=== PATIENT | female | born 1990 ===

== ENCOUNTER 2023-02-07 20:13 | Inpatient (IN) | payer MEDICARE, MEDICAID ==
[2023-02-08] MEDS ORDERED: MAG HYDROX/AL HYDROX/SIMETH 30 ML CUP PO PRN (13:52)
[2023-02-08] MEDS ORDERED: MAGNESIUM HYDROXIDE 2,400 MG/30 ML CUP PO PRN (13:52)
[2023-02-08] MEDS ORDERED: LORazepam 2 MG/ML INJ IM PRN (14:07)
[2023-02-08] MEDS ORDERED: HALOPERIDOL LACTATE 5 MG/ML 1 ML VIAL IM PRN (14:08)
[2023-02-08] MEDS: NICOTINE GUM (POLACRILEX) 2 MG GUM BUCCAL PRN ×2 (20:07→23:23)
[2023-02-08] MEDS: ACETAMINOPHEN TAB 325 MG TAB PO PRN (20:07)
[2023-02-08] MEDS ORDERED: TRIAMCINOLONE 0.1% CREAM 80 GM TUBE TOPICAL PRN (21:00)
[2023-02-08] MEDS: LORazepam 1 MG TAB PO PRN (21:06)
[2023-02-08] MEDS: BRIVIACT 100 MG PO SCH (22:44)
[2023-02-08] MEDS: haloperidoL 5 MG TAB PO PRN (23:23)
[2023-02-09] MEDS: FOLIC ACID 1 MG TAB PO SCH (08:18)
[2023-02-09] MEDS: PANTOPRAZOLE 40 MG TABLET PO SCH (08:18)
[2023-02-09] MEDS: NICOTINE GUM (POLACRILEX) 2 MG GUM BUCCAL PRN ×4 (08:18→20:37)
[2023-02-09] MEDS: SERTRALINE 100 MG TAB PO SCH (08:18)
[2023-02-09] MEDS: BRIVIACT 100 MG PO SCH ×2 (08:20→20:33)
[2023-02-09] MEDS: LURASIDONE 80 MG TAB PO SCH (08:38)
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
[2023-02-09 10:12] LABS: Chol/HDL Ratio 2.53 Ratio; LDL Cholesterol,Calculated 110.4 mg/dL (0.0-131.0); VLDL Calculation 16.58 mg/dL (5.00-40.00)
[2023-02-09] MEDS: LORazepam 1 MG TAB PO PRN ×2 (14:24→22:14)
[2023-02-09] MEDS: haloperidoL 5 MG TAB PO PRN (20:37)
--- NOTE | 2023-02-09 21:40 | P.CONS ---
History of Present Illness - Reason for Consult Consult date: 02/09/23 - History of Present Illness The patient is a 32-year-old female who was transferred from [facility] with the patient had been admitted after an intentional overdose with clonidine. The patient was reportedly admitted to the ICU with altered mental status. The patient's mentation gradually improved and was transferred to the [facility] unit where she was seen and evaluated with the mental health unit RN Zoya logan. The patient endorsed right dorsal hand pain and swelling, with initial bruising 3 days ago with subsequent swelling since this morning. She reports mild pain at the site rated at a 4 out of 10 at the time of interview. Reports full range of motion of the right hand. Denied extremity fever or chills. She reports recreational marijuana use. Reports vape use. Denied alcohol use. Review of systems: Pertinent positives and negatives as discussed in HPI, a complete review of systems was performed and all other systems are negative. Physical examination: General: non toxic, no distress, appears at stated age, normal weight Derm: Right dorsum hand mild 5-6 cm erythema with area of fluctuance noted with tenderness, no unusual ecchymoses, warm, dry Head: atraumatic, normocephalic, symmetric Eyes: EOMI, no lid lag, anicteric sclera ENT: Nose and ears atraumatic, no thrush, no pharyngeal erythema Neck: trachea midline, supple Mouth: no lip lesion, mucus membranes moist Cardiovascular: S1S2 reg, no murmur, no edema Lungs: CTA bilateral, no rhonchi, no rales , no accessory muscle use Abdominal: soft, nontender to palpation, no guarding Ext: no gross muscle atrophy, no contractures, Neuro: No gross focal neuro deficits noted Psych: Alert, oriented, appropriate affect Assessment: Right hand cellulitis with subcutaneous abscess Tobacco, marijuana abuse Depression and suicidal ideation Plan: Start patient on clindamycin empirically which should cover for community acquired MRSA Hand surgery consulted for drainage Thank you for allowing us to participate in the care of this patient. We will follow peripherally. Do not hesitate to contact us with questions. Someone can be reached from the [facility] hospitalist group at all hours of the day at [phone]. Past Medical History History of Any Multi-Drug Resistant Organisms: None Reported Smoking Status: Current every day smoker - Past Family History Mother Family Medical History: Hypertension Medications and Allergies Home Medications Medication Instructions Recorded Confirmed Type Unable To Assess [Unable to Assess] 02/08/23 02/08/23 History Allergies Allergy/AdvReac Type Severity Reaction Status Date / Time quetiapine [From Seroquel] Allergy Unknown Verified 02/08/23 21:04 amoxicillin [From Augmentin] AdvReac Severe Anaphylaxis Verified 02/08/23 21:04 clavulanic acid AdvReac Severe Anaphylaxis Verified 02/08/23 21:04 [From Augmentin] divalproex sodium AdvReac Unknown Verified 02/08/23 21:04 [From Depakote] hydroxyzine [From Atarax] AdvReac Unknown Verified 02/08/23 21:04 lamotrigine [From Lamictal] AdvReac Unknown Verified 02/08/23 21:04 levetiracetam [From Keppra] AdvReac Unknown Verified 02/08/23 21:04 Penicillins AdvReac Anaphylaxis Verified 02/08/23 21:04 trazodone AdvReac Unknown Verified 02/08/23 21:04 Physical Exam Vitals: Vital Signs Temp Pulse Resp BP 02/09/23 06:36 97.8 F 104 H 14 138/77 Intake and Output 02/09/23 02/09/23 02/09/23 06:59 14:59 22:59 Other: Weight 54.3 kg Results Labs: Abnormal Lab Results - Last 24 Hours (Table) 02/09/23 Range/Units 06:03 Cholesterol 210.00 H (0.00-200.00) mg/dL HDL Cholesterol 83.00 H (40.00-60.00) mg/dL
[2023-02-09] MEDS: CLINDAMYCIN 150 MG CAP PO SCH (22:12)
[2023-02-10] MEDS: SERTRALINE 100 MG TAB PO SCH (08:17)
[2023-02-10] MEDS: LURASIDONE 80 MG TAB PO SCH (08:18)
[2023-02-10] MEDS: PANTOPRAZOLE 40 MG TABLET PO SCH (08:18)
[2023-02-10] MEDS: CLINDAMYCIN 150 MG CAP PO SCH ×3 (08:18→20:00)
[2023-02-10] MEDS: FOLIC ACID 1 MG TAB PO SCH (08:18)
[2023-02-10] MEDS: NICOTINE GUM (POLACRILEX) 2 MG GUM BUCCAL PRN ×4 (08:19→19:59)
[2023-02-10] MEDS: LORazepam 1 MG TAB PO PRN ×2 (09:08→20:29)
[2023-02-10] MEDS: BRIVIACT 100 MG PO SCH ×2 (09:11→20:01)
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
--- NOTE | 2023-02-10 12:18 | P.CNOR ---
History of Present Illness - [facility] Consult date: 02/10/23 Consult reason: other (Right hand cellulitis) History of present illness: Patient is a 32-year-old female who was transferred from [facility] to [facility] on 02/09/2023. On reviewing the chart, it seems that the patient was admitted to the ICU due to medication overdose with suicidal ideations. Patient was then transferred to our hospital for mental health unit admission. When being evaluated yesterday there was concerns of some swelling, bruising and redness to the dorsum of the right hand. Patient states that she had noticed the swelling and redness over the last few days. We were consulted by the internal medicine group for possible cellulitis versus abscess. Patient was evaluated today on the mental health unit. Patient appears well, she does not appear septic. She had a very difficult time providing history of the right hand. She states she cannot remove any specific trauma. She denies any fevers or chills at this time. She does have some discomfort on the dorsum of the hand near the area of the bruise. She thinks that she had an IV in her left arm but cannot remember anything specific on the right upper extremity. She denies any previous orthopedic surgery to the right upper extremity. She denies any other orthopedic issues at this time. Review of Systems Constitutional: Reports as per HPI Past Medical History History of Any Multi-Drug Resistant Organisms: None Reported Smoking Status: Current every day smoker - Past Family History Mother Family Medical History: Hypertension Medications and Allergies Home Medications Medication Instructions Recorded Confirmed Type Unable To Assess [Unable to Assess] 02/08/23 02/08/23 History Allergies Allergy/AdvReac Type Severity Reaction Status Date / Time quetiapine [From Seroquel] Allergy Unknown Verified 02/08/23 21:04 amoxicillin [From Augmentin] AdvReac Severe Anaphylaxis Verified 02/08/23 21:04 clavulanic acid AdvReac Severe Anaphylaxis Verified 02/08/23 21:04 [From Augmentin] divalproex sodium AdvReac Unknown Verified 02/08/23 21:04 [From Depakote] hydroxyzine [From Atarax] AdvReac Unknown Verified 02/08/23 21:04 lamotrigine [From Lamictal] AdvReac Unknown Verified 02/08/23 21:04 levetiracetam [From Keppra] AdvReac Unknown Verified 02/08/23 21:04 Penicillins AdvReac Anaphylaxis Verified 02/08/23 21:04 trazodone AdvReac Unknown Verified 02/08/23 21:04 Physical Examination Right upper extremity: No obvious open lesions, sores, areas of fluctuance appreciated. There is bruising noted on the dorsum of the hand, there is some mild erythema noted at the MCP joints of the second and third digit. There is a [place] was drawn with marker present on the dorsum of the hand also. No streaking erythema is noted on the dorsal or volar aspect of the upper extremity Patient demonstrates minimal tenderness with palpation on the dorsum of the hand, I'm able to appreciate a small mobile nodule between the second and third metacarpal on the dorsum of the hand. She is nontender with palpation throughout the MCP joints, PIP and DIP joints of the entire hand. No tenderness with palpation at the wrist both dorsally and volar Patient is able to wiggle all her fingers with no difficulty, she can make a full fist with no difficulty. Range of motion at the DIP PIP and MCP joints reproduces no pain. Extension and flexion are intact at the wrist with no pain. Elbow extension and flexion cause no pain. Sensation to light touch throughout the extremity is intact Radial/ulnar pulses are 2+ Assessment and Plan Assessment: Right hand pain Right hand ecchymosis Right hand contusion Possible right hand cellulitis Other medical comorbidities Plan: I was able to discuss the case, this including both physical exam findings with my attending Dr. Moralez. No emergent orthopedic hand surgery is recommended at this time. Patient's clinical picture demonstrates low concern for cellulitis versus obvious abscess at this time. I CBC was ordered, awaiting results of this. X- rays were also ordered by myself for the right hand to rule out foreign body or other osseous abnormalities Taking into consideration the patient's recent ICU admission, there may have been an IV placed in this area that caused some localized swelling and bruising We will review x-rays when available along with lab tests Recommend basic range of motion exercises with the hand at this time, can also utilize ice pack. Avoid excess lifting or heavy lifting with the right upper extremity at this time GI and DVT prophylaxis per primary medical service We'll continue to follow during inpatient stay Time with Patient: Less than 30
[2023-02-10] MEDS: NALTREXONE HCL 50 MG TAB PO SCH (12:29)
[2023-02-10] MEDS: busPIRone HCl 5 MG TAB PO SCH ×2 (12:29→20:00)
--- NOTE | 2023-02-10 14:10 | XR ---
EXAMINATION TYPE: XR hand complete RT DATE OF EXAM: 02/10/2023 COMPARISON: NONE HISTORY: Soft tissue swelling. TECHNIQUE: Three views are submitted. FINDINGS: The osseous structures are intact. The joint spaces are preserved and there is no acute fracture or dislocation. Soft tissue swelling. IMPRESSION: 1. No definite acute fracture or dislocation if symptoms persist, follow-up study in 7 to 10 days wo uld be suggested
[2023-02-10] MEDS ORDERED: QUEtiapine 50 MG TAB PO SCH (21:00)
[2023-02-11] MEDS: CLINDAMYCIN 150 MG CAP PO SCH ×3 (08:23→20:48)
[2023-02-11] MEDS: busPIRone HCl 5 MG TAB PO SCH ×2 (08:24→20:19)
[2023-02-11] MEDS: SERTRALINE 100 MG TAB PO SCH (08:24)
[2023-02-11] MEDS: NICOTINE GUM (POLACRILEX) 2 MG GUM BUCCAL PRN ×5 (08:24→18:43)
[2023-02-11] MEDS: NALTREXONE HCL 50 MG TAB PO SCH (08:24)
[2023-02-11] MEDS: FOLIC ACID 1 MG TAB PO SCH (08:24)
[2023-02-11] MEDS: PANTOPRAZOLE 40 MG TABLET PO SCH (08:24)
[2023-02-11] MEDS: BRIVIACT 100 MG PO SCH ×2 (08:25→20:47)
[2023-02-11] MEDS ORDERED: LURASIDONE 40 MG TAB PO SCH (09:00)
[2023-02-11 09:37] LABS: Basophils % (A) 0 %; Eosinophils # (A) 0.3 k/uL (0-0.7); Eosinophils % (A) 3 %; HCT 43.3 % (34.0-46.0); HGB 14.1 gm/dL (11.4-16.0); Lymphocytes # (A) 1.9 k/uL (1.0-4.8); Lymphocytes % (A) 21 %; MCH 32.1 pg (25.0-35.0); MCHC 32.5 g/dL (31.0-37.0); MCV 98.9 fL (80.0-100.0); Mean Platelet Volume 8.4; Monocytes # (A) 0.8 k/uL (0-1.0); Monocytes % (A) 8 %; Neutrophils # (A) 6.1 k/uL (1.3-7.7); Neutrophils % (A) 65 %; Platelet Count 360 k/uL (150-450); RBC 4.38 m/uL (3.80-5.40); RDW 12.9 % (11.5-15.5); WBC 9.4 k/uL (3.8-10.6)
[2023-02-11 09:57] LABS: ALT 27 U/L (4-34); AST 24 U/L (14-36); African American GFR (CKD) >90 (>60 ml/min/1.73 sqM); Albumin 4.9 g/dL (3.5-5.0); Alkaline Phosphatase 98 U/L (38-126); Anion Gap 14 mmol/L; Blood Urea Nitrogen 18 mg/dL (7-17); Calcium 10.2 mg/dL (8.4-10.2); Carbon Dioxide 24 mmol/L (22-30); Chloride 102 mmol/L (98-107); Glucose 115 mg/dL (74-99); Non-African American GFR(CKD) 83 (>60 ml/min/1.73 sqM); Potassium 4.6 mmol/L (3.5-5.1); Sodium 140 mmol/L (137-145); Total Bilirubin 0.8 mg/dL (0.2-1.3); Total Protein 8.4 g/dL (6.3-8.2)
[2023-02-11] MEDS: LORazepam 1 MG TAB PO PRN (10:49)
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
--- NOTE | 2023-02-11 15:40 | P.PN ---
Subjective Progress Note Date: 02/11/23 Principal diagnosis: Right hand swelling/ecchymosis Patient was seen in the hallway in the mental health unit this morning. Patient denies any significant change in her right hand/wrist since yesterday. Patient says she is still has swelling and bruising present over the dorsum of the right hand. Patient states she does have pinpoint tenderness over the swelling. Patient denies any issues with function of the right hand/wrist. Patient does say she has pain when she goes to make a fist. Patient denies chest pain, fever, shortness of breath, nausea, vomiting, change in vision, loss of bowel/bladder control. Objective - Vital Signs Vital signs: Vital Signs Temp 97.6 F 02/11/23 06:00 Pulse 67 02/11/23 06:00 Resp 17 02/11/23 06:00 BP 111/65 02/11/23 06:00 Pulse Ox 98 02/11/23 06:00 FiO2 - Exam Ecchymosis and swelling present over the dorsum of the right hand on the radial side. 1 x 1 cm area in the center of the ecchymosis is swollen. There is tenderness to palpation focally over this area of swelling. This area is mobile during palpation. Patient does have full range of motion in her right wrist in flexion/extension and throughout digits and right hand. There is in some pain during flexion of MCP J referred to the dorsum of the right hand.4+/5 in all major motor groups in right upper extremity and left upper extremity. Radial pulse intact, 2+. Cap refill under 3 seconds in digits of upper extremities - Labs CBC & Chem 7: 02/11/23 08:40 02/11/23 08:40 Labs: Abnormal Lab Results - Last 24 Hours (Table) 02/11/23 Range/Units 08:40 BUN 18 H (7-17) mg/dL Glucose 115 H (74-99) mg/dL Total Protein 8.4 H (6.3-8.2) g/dL Assessment and Plan Assessment: Right hand dorsum ecchymosis/swelling Plan: Right hand contusion - x-rays of the right hand have been reviewed. Negative for any fractures/dislocations. Joints appear to be intact. Based on exam delfin yang and patient's previous history of labs being drawn from the dorsum of the right hand, likely thrombophlebitis. Low concern for abscess/infection in the right hand this time. We are recommending continued conservative measures with compression bandage as needed and ice packs to help with swelling to the hand. At this time we are not recommending any emergent orthopedic surgical intervention. We do recommend patient to follow-up in the outpatient setting as needed for further evaluation of her hand with Dr. Maradiaga. We will continue to be available as needed 2. Appreciate medical management 3. Pain management - Tylenol 4. DVT prophylaxis recs 5. GI prophylaxis - Protonix; Maalox 6. PT/OT - weightbearing as tolerated Time with Patient: Less than 30
[2023-02-11] MEDS: ACETAMINOPHEN TAB 325 MG TAB PO PRN (17:28)
[2023-02-11] MEDS: QUEtiapine 100 MG TAB PO SCH (20:19)
[2023-02-12] MEDS: BRIVIACT 100 MG PO SCH ×2 (08:08→21:02)
[2023-02-12] MEDS: SERTRALINE 100 MG TAB PO SCH (08:09)
[2023-02-12] MEDS: CLINDAMYCIN 150 MG CAP PO SCH ×3 (08:09→20:51)
[2023-02-12] MEDS: FOLIC ACID 1 MG TAB PO SCH (08:09)
[2023-02-12] MEDS: NALTREXONE HCL 50 MG TAB PO SCH (08:09)
[2023-02-12] MEDS: PANTOPRAZOLE 40 MG TABLET PO SCH (08:10)
[2023-02-12] MEDS: busPIRone HCl 5 MG TAB PO SCH ×2 (08:10→20:02)
[2023-02-12] MEDS: NICOTINE GUM (POLACRILEX) 2 MG GUM BUCCAL PRN ×6 (08:26→18:55)
[2023-02-12] MEDS ORDERED: LURASIDONE 20 MG TAB PO SCH (09:00)
[2023-02-12] MEDS: ACETAMINOPHEN TAB 325 MG TAB PO PRN (09:38)
--- NOTE | 2023-02-12 11:29 | P.PN ---
Progress Note - Text Progress Note Date: 02/12/23 Interval History: Patient was seen [wandering the hallways] and was directable and agreeable to speak with typewriter mechanic in the office. Patient appeared to have an improvement today and her affect and was more directable during conversation. She states that she is doing better today. Claims that the "shakiness" and also her restless leg symptoms improved overnight. States that she was able to sleep throughout the night fairly well. she states that she is doing a bit better with regards to her anxiety and also mood. She claims that she has been taking part in groups and participating on the unit. He spoke more about her plans for discharge and her father helping her with moving into an AFC. At this time patient denies any current suicidal or homical ideations, intent or plan. Patient denies any auditory, visual hallucinations and denies any paranoia or delusions. Patient denies any side effects from the medications and has been compliant with meds. Mental Status Exam: General Appearance: Patient appears to be thin, improving appearance, stated age. Attempts to be cooperative. Hygiene appears to be fair. Several old scars of cuts over her arms. Behavior: Patient is sitting in chair, fairly constricted, monotone. Speech: Patient's speech is fluent and nonpressured. [place], improving Mood/Affect: Patient reports their mood is improving, affect is congruent Suicidality/Homicidality: Patient denies having any homicidal ideation intent or plan. Denies any current suicidal ideations Perceptions: Patient denies any visual hallucinations and denies any auditory hallucinations Though content/process: goal oriented. No overt psychosis. [place], improving Memory and concentration: Alert and oriented 3, fair attention span. 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 Patient has signed adult voluntary form and medication consent and is placed in patient's chart. -Medications : continue Zoloft 200 mg daily for mood/anxiety. continue buspar 15 mg bid for anxiety, Seroquel 100 mg qhs for insomnia/mood stabilization. naltrexone 50 mg daily for etoh cravings. increased requip 0.25 BID for RLS -Ativan and Haldol PRN for agitation/aggression -NRT - nicotine patch -SW on board for discharge planning. Encourage patient to participate in groups to work on coping skills. likely discharge tomorrow, father will filler picker and apparently will be moving into an AFC.
--- NOTE | 2023-02-12 12:02 | P.PN ---
Subjective Progress Note Date: 02/12/23 Principal diagnosis: Right hand swelling/ecchymosis Patient was seen this morning in the [facility] unit. Patient says she notes some improvement in the swelling in her right hand. Patient says she does have good range of motion in her right hand/wrist and digits. Patient denies any changes. Patient denies chest pain, fever, shortness of breath, nausea, vomiting, change in vision, loss of bowel/bladder control. Objective - Vital Signs Vital signs: Vital Signs Temp 97.9 F 02/12/23 06:47 Pulse 65 02/12/23 06:47 Resp 14 02/12/23 06:47 BP 118/69 02/12/23 06:47 Pulse Ox 98 02/11/23 06:00 FiO2 - Exam Ecchymosis and swelling present over the dorsum of the right hand on the radial side. 1 x 1 cm area in the center of the ecchymosis is swollen. There is tenderness to palpation focally over this area of swelling. This area is mobile during palpation. Patient does have full range of motion in her right wrist in flexion/extension and throughout digits and right hand. There is in some pain during flexion of MCP J referred to the dorsum of the right hand.4+/5 in all major motor groups in right upper extremity and left upper extremity. Radial pulse intact, 2+. Cap refill under 3 seconds in digits of upper extremities - Labs CBC & Chem 7: 02/11/23 08:40 02/11/23 08:40 Assessment and Plan Assessment: Right hand dorsum ecchymosis/swelling Plan: Right hand contusion - x-rays of the right hand have been reviewed. Negative for any fractures/dislocations. Joints appear to be intact. Based on exam findings and patient's previous history of labs being drawn from the dorsum of the right hand, likely thrombophlebitis. Low concern for abscess/infection in the right hand this time. We are recommending continued conservative measures with compression bandage as needed and ice packs to help with swelling to the hand. At this time we are not recommending any emergent orthopedic surgical intervention. We do recommend patient to follow-up in the outpatient setting as needed for further evaluation of her hand with Dr. Maradiaga. Patient stable for orthopedic standpoint for discharge. At this time orthopedics is signing off. Please do not hesitate to contact us for any further questions. 2. Appreciate medical management 3. Pain management - Tylenol 4. DVT prophylaxis recs 5. GI prophylaxis - Protonix; Maalox 6. PT/OT - weightbearing as tolerated Time with Patient: Less than 30
[2023-02-12] MEDS: LORazepam 1 MG TAB PO PRN ×2 (13:06→20:51)
[2023-02-12] MEDS: QUEtiapine 100 MG TAB PO SCH (20:02)
[2023-02-12] MEDS: haloperidoL 5 MG TAB PO PRN (22:21)
[2023-02-13] MEDS: NALTREXONE HCL 50 MG TAB PO SCH (08:05)
[2023-02-13 08:06] VITALS: BP 116/50; PULSE 105; RESP 20; TEMP 96.9
[2023-02-13] MEDS: PANTOPRAZOLE 40 MG TABLET PO SCH (08:06)
[2023-02-13] MEDS: SERTRALINE 100 MG TAB PO SCH (08:06)
[2023-02-13] MEDS: busPIRone HCl 5 MG TAB PO SCH (08:06)
[2023-02-13] MEDS: FOLIC ACID 1 MG TAB PO SCH (08:06)
[2023-02-13] MEDS: CLINDAMYCIN 150 MG CAP PO SCH (08:06)
[2023-02-13] MEDS: NICOTINE GUM (POLACRILEX) 2 MG GUM BUCCAL PRN ×2 (08:07→10:15)
[2023-02-13] MEDS: BRIVIACT 100 MG PO SCH (08:09)
[2023-02-13] MEDS: ACETAMINOPHEN TAB 325 MG TAB PO PRN (09:45)
--- NOTE | 2023-02-13 10:21 | P.DS ---
Providers Date of admission: 02/08/23 18:03 Expected date of discharge: 02/13/23 Attending physician: Eleuterio Parra MD Consults: 02/08/23 13:52 Consult Physician Routine Consulting Provider: Kristina Poon Consult Reason/Comments: medical management Do you want consulting provider notified?: Yes 02/09/23 21:37 Consult Physician Urgent Consulting Provider: Hemant Maradiaga Consult Reason/Comments: R hand abscess Do you want consulting provider notified?: Yes Primary care physician: Stated None - Discharge Diagnosis(es) (1) Major depressive disorder without psychotic features Current Visit: Yes Status: Acute Priority: High (2) Overdose of medication Current Visit: Yes Status: Acute Priority: High (3) PTSD (post-traumatic stress disorder) Current Visit: Yes Status: Acute Priority: Medium (4) Alcohol use disorder Current Visit: Yes Status: Acute Priority: High (5) Nicotine dependence Current Visit: Yes Status: Acute Priority: Low Hospital Course: Admission HPI: Admission note was completed by Dr Betancourt "This is a psychiatric assessment Cecelia francisco who is a 32-year-old female and was hospitalized for depression and suicidal ideations Patient reports that she overdosed on some of the medications which may be clonidine Patient states that she does not feel that she wants to continue living and still feels very suicidal She says that she also jumped off the bridge in January and does not remember who saved her but ended up in the hospital She said that she has been tried on several different medications in an of them seem to work Patient however also admits that she drinks a pint of alcohol every night She says that she is depressed and frustrated over not being able to see her 9-year-old child who is living with her biological father and stepmother Patient states that she has nowhere else to go and feels overwhelmed and still feels that she wants to end her life" Hospital course: Upon admission to the unit patient was directable and agreeable to commence treatment and signed adult voluntary form . Patient was initially fairly anxious, going through alcohol withdrawal and also isolative however with time in treatment she got along well with other patients on the unit and followed unit protocol. Patient was compliant with the medications and denied any side effects throughout hospital course. Patient was started on CIWA protocol with when necessary Ativan for withdrawal from alcohol. Patient was started on Zoloft 200 mg daily for mood/anxiety, BuSpar 15 mg twice a day for anxiety, Seroquel 100 mg daily at bedtime for insomnia/mood stabilization, naltrexone by mouth 50 mg daily for alcohol cravings, Requip 0.25 mg twice a day for restless leg symptoms. Patient spoke of her stressors and engaged in therapy both group and individual. Patient was also seen by medical team for history and physical exam. Throughout the course of the hospitalization patient gradually improved with regards to mood, anxiety, suicidal thoughts, sleep and became more future oriented with improved insight and judgment. On the day of discharge patient denied any suicidal or homicidal ideations intent or plan denied any auditory or visual hallucinations. Patient endorsed wanting to live for her health and her daughter. The patient denied any access to guns or weapons. Patient denied any paranoia and did not endorse any delusions. Patient does have a significant history of substance abuse and was counseled on abstaining from all substances including alcohol and marijuana. Patient was offered however declined inpatient substance-abuse rehab. Patient was however crippled to go to a halfway with the assistance of her father helping her with the move. Patient was also counseled on the medications and need for regular compliance and was encouraged to follow-up with their outpatient appointment for mental health and also for primary care. Prior to discharge a family meeting will be arranged by licensed social worker to answer any questions and ensure safety upon discharge. Mental status exam: General Appearance: Patient appears to be short in stature, stated age is alert, pleasant, and cooperative. Patient is in no acute distress and has improved hygiene and grooming Behavior: Patient is calmly seated without any agitated behavior. Speech: Patient's speech is fluent and nonpressured. Mood/Affect: Patient reports their mood is "good", affect is congruent and euthymic. Suicidality/Homicidality: Patient denies having any suicidal or homicidal ideation intent or plan. Perceptions: Patient denies any auditory or visual hallucinations. Though content/process: There is no evidence of any delusional thought content and thought process is linear and goal-directed. more future oriented Memory and concentration: AOX3, grossly intact for the purposes of this session. Can spell "WORLD" backwards correctly. Judgment and insight: improved with guarded prognosis Impression: Major depressive disorder recurrent without psychotic features Overdose of medication PTSD Alcohol use disorder Nicotine dependence Plan: -Continue with discharge today as patient has improved and stabilized psychiatrically and is not currently an imminent threat to herself and/or others. Patient will remain at chronically elevated risk for harm to self and/or others due to her impulsivity and substance abuse. -Continue medications: Zoloft 200 mg daily for mood/anxiety, BuSpar 15 mg twice a day for anxiety, Seroquel 100 mg daily at bedtime for insomnia/mood stabilization, naltrexone 50 mg by mouth daily for alcohol cravings, Requip 0.25 mg twice a day for restless leg symptoms -Patient was counseled on the need for medication compliance and appropriate follow-up at mental health and also primary care for medical issues. Patient verbalized understanding and agreed. -Social work to arrange for and conduct family meeting to ensure safety upon discharge and answer any questions/concerns. Social work also to arrange for patients follow up appointments with [facility] for psychiatric care along with follow up with primary care provider. -Patient counseled on abstaining from recreational drugs and marijuana and alcohol. Was informed/educated on the adverse effects on their physical and mental health. Patient verbally agreed and understood. Patient was offered substance abuse treatment however declined at this time. -Patient was instructed to return to the hospital or seek immediate medical care if their psychiatric or medical symptoms do worsen or reoccur. Allergies Allergy/AdvReac Type Severity Reaction Status Date / Time amoxicillin [From Augmentin] AdvReac Severe Anaphylaxis Verified 02/08/23 21:04 clavulanic acid AdvReac Severe Anaphylaxis Verified 02/08/23 21:04 [From Augmentin] quetiapine [From Seroquel] AdvReac Mild Unknown Verified 02/11/23 09:52 divalproex sodium AdvReac Unknown Verified 02/08/23 21:04 [From Depakote] hydroxyzine [From Atarax] AdvReac Unknown Verified 02/08/23 21:04 lamotrigine [From Lamictal] AdvReac Unknown Verified 02/08/23 21:04 levetiracetam [From Keppra] AdvReac Unknown Verified 02/08/23 21:04 Penicillins AdvReac Anaphylaxis Verified 02/08/23 21:04 trazodone AdvReac Unknown Verified 02/08/23 21:04 Laboratory Results WBC 9.4 k/uL (3.8-10.6) 02/11/23 08:40 RBC 4.38 m/uL (3.80-5.40) 02/11/23 08:40 Hgb 14.1 gm/dL (11.4-16.0) 02/11/23 08:40 Hct 43.3 % (34.0-46.0) 02/11/23 08:40 MCV 98.9 fL (80.0-100.0) 02/11/23 08:40 MCH 32.1 pg (25.0-35.0) 02/11/23 08:40 MCHC 32.5 g/dL (31.0-37.0) 02/11/23 08:40 RDW 12.9 % (11.5-15.5) 02/11/23 08:40 Plt Count 360 k/uL (150-450) 02/11/23 08:40 MPV 8.4 02/11/23 08:40 Neutrophils % 65 % 02/11/23 08:40 Lymphocytes % 21 % 02/11/23 08:40 Monocytes % 8 % 02/11/23 08:40 Eosinophils % 3 % 02/11/23 08:40 Basophils % 0 % 02/11/23 08:40 Neutrophils # 6.1 k/uL (1.3-7.7) 02/11/23 08:40 Lymphocytes # 1.9 k/uL (1.0-4.8) 02/11/23 08:40 Monocytes # 0.8 k/uL (0-1.0) 02/11/23 08:40 Eosinophils # 0.3 k/uL (0-0.7) 02/11/23 08:40 Basophils # 0.0 k/uL (0-0.2) 02/11/23 08:40 Sodium 140 mmol/L (137-145) 02/11/23 08:40 Potassium 4.6 mmol/L (3.5-5.1) 02/11/23 08:40 Chloride 102 mmol/L (98-107) 02/11/23 08:40 Carbon Dioxide 24 mmol/L (22-30) 02/11/23 08:40 Anion Gap 14 mmol/L 02/11/23 08:40 BUN 18 mg/dL (7-17) H 02/11/23 08:40 Creatinine 0.91 mg/dL (0.52-1.04) 02/11/23 08:40 Est GFR (CKD-EPI)AfAm >90 (>60 ml/min/1.73 sqM) 02/11/23 08:40 Est GFR (CKD-EPI)NonAf 83 (>60 ml/min/1.73 sqM) 02/11/23 08:40 Glucose 115 mg/dL (74-99) H 02/11/23 08:[address] Glu mg/dL 100 mg/dL 02/09/23 06:03 Hemoglobin A1c 5.1 % (<=6.0) 02/09/23 06:03 Calcium 10.2 mg/dL (8.4-10.2) 02/11/23 08:40 Total Bilirubin 0.8 mg/dL (0.2-1.3) 02/11/23 08:40 AST 24 U/L (14-36) 02/11/23 08:40 ALT 27 U/L (4-34) 02/11/23 08:40 Alkaline Phosphatase 98 U/L (38-126) 02/11/23 08:40 Total Protein 8.4 g/dL (6.3-8.2) H 02/11/23 08:40 Albumin 4.9 g/dL (3.5-5.0) 02/11/23 08:40 Triglycerides 82.90 mg/dL (0.00-149.00) 02/09/23 06:03 Cholesterol 210.00 mg/dL (0.00-200.00) H 02/09/23 06:03 LDL Cholesterol, Calc 110.4 mg/dL (0.0-131.0) 02/09/23 06:03 VLDL Cholesterol, Calc 16.58 mg/dL (5.00-40.00) 02/09/23 06:03 HDL Cholesterol 83.00 mg/dL (40.00-60.00) H 02/09/23 06:03 Cholesterol/HDL Ratio 2.53 Ratio 02/09/23 06:03 Vital Signs Temp 96.9 F L 02/13/23 08:04 Pulse 105 H 02/13/23 08:04 Resp 20 02/13/23 08:04 BP 116/50 02/13/23 08:04 Pulse Ox 98 02/11/23 06:00 FiO2 Patient Condition at Discharge: Stable Plan - Discharge Summary Discharge Rx Participant: No New Discharge Prescriptions: New Triamcinolone 0.1% Cream [Kenalog 0.1% Cream] 1 applic TOPICAL BID PRN each PRN Reason: Rash Nicotine Gum (Polacrilex) [Nicorette] 2 mg BUCCAL Q4HR PRN 30 Days #180 pieceofgum PRN Reason: Nicotine Cravings Pantoprazole [Protonix] 40 mg PO AC-BRKFST 30 Days #30 tab rOPINIRole HCL [Requip] 0.25 mg PO BID 30 Days #60 tab QUEtiapine [SEROquel] 100 mg PO HS 30 Days #30 tab Acetaminophen Tab [Tylenol] 650 mg PO Q4HR PRN tab PRN Reason: Mild Pain (Scale 1 To 3) Sertraline [Zoloft] 200 mg PO DAILY 30 Days #60 tab busPIRone HCl [Buspar] 20 mg PO BID 30 Days #120 tab Clindamycin [Cleocin] 450 mg PO TID 4 Days #36 cap Folic Acid 1 mg PO DAILY 30 Days #30 tab Naltrexone HCl [Revia] 50 mg PO DAILY 30 Days #30 tab Discharge Medication List Acetaminophen Tab [Tylenol] 650 mg PO Q4HR PRN tab 02/13/23 [Rx] Clindamycin [Cleocin] 450 mg PO TID 4 Days #36 cap 02/13/23 [Rx] Folic Acid 1 mg PO DAILY 30 Days #30 tab 02/13/23 [Rx] Naltrexone HCl [Revia] 50 mg PO DAILY 30 Days #30 tab 02/13/23 [Rx] Nicotine Gum (Polacrilex) [Nicorette] 2 mg BUCCAL Q4HR PRN 30 Days #180 pieceofgum 02/13/23 [Rx] Pantoprazole [Protonix] 40 mg PO AC-BRKFST 30 Days #30 tab 02/13/23 [Rx] QUEtiapine [SEROquel] 100 mg PO HS 30 Days #30 tab 02/13/23 [Rx] Sertraline [Zoloft] 200 mg PO DAILY 30 Days #60 tab 02/13/23 [Rx] Triamcinolone 0.1% Cream [Kenalog 0.1% Cream] 1 applic TOPICAL BID PRN each 02/13/23 [Rx] busPIRone HCl [Buspar] 20 mg PO BID 30 Days #120 tab 02/13/23 [Rx] rOPINIRole HCL [Requip] 0.25 mg PO BID 30 Days #60 tab 02/13/23 [Rx] Follow up Appointment(s)/Referral(s): [facility] [Other] - 02/14/23 12:30 pm Hemant Maradiaga DO [Doctor of Osteopathic Medicine] - As Needed Patient Instructions/Handouts: How to Stop Smoking (ED), Depression (DC), Abuse of Alcohol (DC) Activity/Diet/Wound Care/Special Instructions: Avoid the use of street drugs and alcohol. Take all medications as prescribed. When you are in need of refills on your medications, please contact your medical provider and/or outpatient psychiatrist/provider to have this done. Please go to your scheduled outpatient appointment for aftercare treatment. If symptoms return or become worse, call the crisis line at and/or go to the nearest emergency room for evaluation. National Suicide Hotline 338. Discharge Disposition: HOME SELF-CARE
[2023-02-13] MEDS: LORazepam 1 MG TAB PO PRN (10:45)
[2023-02-13] MEDS ORDERED: busPIRone HCl 10 MG TAB PO SCH (21:00)
== END 2023-02-13 14:00 | disposition home or self-care (01) | DRG 885 ==
LOC: UNDOADMIN 20:13 → 3MHU 20:13
PROVIDERS: ADMIT Psychiatry & Neurology Psychiatry; ATTEND Psychiatry & Neurology Psychiatry
DX: F33.9 Major depressive disorder, recurrent, unspecified (principal); F10.139 Alcohol abuse with withdrawal, unspecified; L02.511 Cutaneous abscess of right hand; L03.113 Cellulitis of right upper limb; R45.851 Suicidal ideations; F12.10 Cannabis abuse, uncomplicated; F17.200 Nicotine dependence, unspecified, uncomplicated; F34.1 Dysthymic disorder; F43.10 Post-traumatic stress disorder, unspecified; G25.81 Restless legs syndrome; G47.00 Insomnia, unspecified; S60.221A Contusion of right hand, initial encounter; T50.902A Poisoning by unspecified drugs, medicaments and biological substances, intentional self-harm, initial encounter; Z79.899 Other long term (current) drug therapy; Z82.49 Family history of ischemic heart disease and other diseases of the circulatory system; Z91.51 Personal history of suicidal behavior; Z88.0 Allergy status to penicillin; Z88.8 Allergy status to other drugs, medicaments and biological substances
CPT/HCPCS: 80053; 80061; 83036; 85025